=== PATIENT | male | born 1945 | race American Indian/Alaskan Native ===

== ENCOUNTER 2016-12-16 18:12 | Emergency (ER) | payer MEDICARE ==
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
[2016-12-16] MEDS ORDERED: TYLENOL PO ONE (21:56)
[2016-12-16 22:11] VITALS: BP 128/68
[2016-12-16] MEDS ORDERED: TRIPLE ANTIBIOTIC TP ONE (22:25)
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
== END 2016-12-16 22:11 | disposition home or self-care (01) ==
LOC: ED 18:12
DX: M54.2 Cervicalgia (principal); V49.49XA Driver injured in collision with other motor vehicles in traffic accident, initial encounter; Y93.9 Activity, unspecified; Y92.9 Unspecified place or not applicable; Y99.9 Unspecified external cause status
CPT/HCPCS: 70450; 71020; 72125; A6250